=== PATIENT | male | born 1990 | race African-American/Black ===

== ENCOUNTER 2024-10-12 20:56 | Emergency (ER) | payer SELFPAY ==
[~2024-10-12] VITALS: Ht 175.3 cm; Wt 66.0 kg
[2024-10-12 21:12] VITALS: O2SAT 100
[2024-10-12] MEDS: FAMOTIDINE 20MG/2ML VIAL IV ONE (21:13)
[2024-10-12] MEDS: DIPHENHYDRAMINE 50MG/ML VIAL IV ONE (21:13)
[2024-10-12] MEDS: METHYLPREDNISOLONE SOD SUCC 125MG/2ML (ACT-O-VIAL) IV ONE (21:14)
[2024-10-12 22:08] VITALS: BP 111/58; PULSE 79; RESP 24; TEMP 36.8; O2SAT 98
[2024-10-12] MEDS ORDERED: P50 MT (22:10)
== END 2024-10-12 22:25 | disposition home or self-care (01) ==
LOC: ER 20:56
DX: T78.3XXA Angioneurotic edema, initial encounter (principal); X58.XXXA Exposure to other specified factors, initial encounter; Y93.89 Activity, other specified; Y92.89 Other specified places as the place of occurrence of the external cause; Y99.8 Other external cause status
CPT/HCPCS: 96374; 96375; 99284; J1200; J3490; J2919; Z7610 ×2